=== PATIENT | female | born 2000 | race Caucasian/White ===

== ENCOUNTER → 2019-03-18 | Outpatient (CLI) | payer OTHER ==
[2019-03-18 14:16] LABS: BASO % 0.5 % (0.0-1.0); EOS # 0.1 10^3/uL (0.0-0.5); EOS % 1.4 % (0.0-3.0); HEMATOCRIT 40.3 % (36.0-47.0); HEMOGLOBIN 13.2 g/dl (12.0-15.5); LYMPH # 1.9 10^3/uL (1.5-5.0); LYMPH % 22.6 % (24.0-44.0); MEAN CORPUSCULAR HEMOGLOBIN 30.3 pg (27.0-33.0); MEAN CORPUSCULAR HGB CONC 32.8 g/dl (32.0-36.5); MEAN CORPUSCULAR VOLUME 92.4 fl (80.0-96.0); MONO # 0.5 10^3/uL (0.0-0.8); MONO % 6.4 % (0.0-5.0); NEUTROPHILS # 5.8 10^3/uL (1.5-8.5); NEUTROPHILS % 68.9 % (36.0-66.0); PLATELET COUNT, AUTOMATED 261 10^3/uL (150-450); RED BLOOD COUNT 4.36 10^6/uL (4.00-5.40); WHITE BLOOD COUNT 8.4 10^3/uL (4.0-10.0)
[2019-03-18 15:58] LABS: CHLAMYDIA DNA AMPLIFICATION NEGATIVE (NEGATIVE); GC DNA AMPLIFICATION NEGATIVE (NEGATIVE)
[2019-03-19 09:45] LABS: HIV 1&2 SCREEN CENTAUR NEGATIVE (NEGATIVE); RUBELLA IgG QUALITATIVE IMMUNE (IMMUNE)
== END ==
LOC: M SMT 10:49
PROVIDERS: ATTEND Advanced Practice Midwife
DX: Z34.81 Encounter for supervision of other normal pregnancy, first trimester (principal); Z3A.01 Less than 8 weeks gestation of pregnancy

== ENCOUNTER → 2019-04-02 | Outpatient (CLI) | payer OTHER ==
--- NOTE | 2019-04-02 15:25 | REP ---
OB ULTRASOUND: Real-time sonographic evaluation of the gravid uterus is performed and demonstrates a single living intrauterine gestation. Estimated gestational age 18 weeks 3 days, EDC 08/31/2019. Today's measurements indicate appropriate growth. BPD 39 mm = 18 weeks 0 days, 33rd percentile HC 160 mm = 18 weeks 6 days, 62nd percentile AC 131 mm = 18 weeks 4 days, 55th percentile Femur length 26 mm = 18 weeks 0 day, 35th percentile HC/AC ratio 1.22 within normal range. Estimated weight 235 grams, 44th percentile. Cervix is closed and measures 3.23 cm in length. heart rate 142 beats per minute. SEEN/GROSSLY UNREMARKABLE Lateral ventricles Yes Posterior fossa Yes Upper lip Yes Four-chamber heart Yes LVOT Yes RVOT Yes Stomach Yes Cord insertion Yes Three vessel cord Yes Kidneys Yes Bladder Yes Spine Yes position: Breech. Placenta: Anterior and grade 0 with no previa or abruption. Amniotic fluid: Within normal limits. Electronically Signed by Eben Pardo MD 04/03/2019 11:24 A
== END ==
LOC: M RAD 13:38
PROVIDERS: ATTEND Advanced Practice Midwife
DX: O09.212 Supervision of pregnancy with history of pre-term labor, second trimester (principal); Z3A.18 18 weeks gestation of pregnancy

== ENCOUNTER → 2019-08-07 | Outpatient (REF) | payer OTHER ==
[~2019-08-07] MED LIST: PRENTAB53 PO
== END ==
LOC: M SFHCWAGY 10:06
PROVIDERS: ATTEND Obstetrics & Gynecology
DX: Z36.85 Encounter for antenatal screening for Streptococcus B (principal); Z3A.36 36 weeks gestation of pregnancy

== ENCOUNTER 2019-08-16 12:51 | Outpatient (CLI) | payer OTHER ==
[~2019-08-16] VITALS: Ht 162.6 cm; Wt 81.8 kg
[2019-08-16 13:05] VITALS: BP 119/76
== END 2019-08-16 14:01 | disposition home or self-care (01) ==
LOC: M LDO 12:51
PROVIDERS: ATTEND Obstetrics & Gynecology
DX: O36.8130 Decreased fetal movements, third trimester, not applicable or unspecified (principal); Z3A.37 37 weeks gestation of pregnancy; O34.211 Maternal care for low transverse scar from previous cesarean delivery; Z87.51 Personal history of pre-term labor; Z88.1 Allergy status to other antibiotic agents; Z91.018 Allergy to other foods
CPT/HCPCS: 59025; 76815; G0378; G0463

== ENCOUNTER 2019-08-25 07:20 | Inpatient (IN) | payer OTHER ==
[2019-08-25] VITALS (8 sets, daily range): BP systolic 98–123; BP diastolic 57–70
[~2019-08-25] VITALS: Ht 162.6 cm; Wt 82.4 kg
[~2019-08-25 07:20] MED LIST changes: +MORPHINE PRES-FREE INJ 10 MG/10 ML VIAL (J2274) As Ordered ONE; +OXYTOCIN INJ 10 UNITS/ML VIAL (J2590) As Ordered ONE
[2019-08-25] MEDS ORDERED: ceFAZolin SOD 2 GM in IV 1 EA IV ONE (08:00)
[2019-08-25] MEDS ORDERED: BICITRA 30ML SOLN UDC PO ONE (08:00)
[2019-08-25] MEDS ORDERED: LR 1,000 ML IV SCH ×2 (08:15→10:45)
[2019-08-25] MEDS ORDERED: LR 1,000 ML IV ONE (08:15)
[2019-08-25 08:22] LABS: HEMATOCRIT 40.7 % (36.0-47.0); MEAN CORPUSCULAR HEMOGLOBIN 30.9 pg (27.0-33.0); MEAN CORPUSCULAR HGB CONC 34.4 g/dl (32.0-36.5); MEAN CORPUSCULAR VOLUME 89.8 fl (80.0-96.0); PLATELET COUNT, AUTOMATED 206 10^3/uL (150-450); RED BLOOD COUNT 4.53 10^6/uL (4.00-5.40); WHITE BLOOD COUNT 8.6 10^3/uL (4.0-10.0)
[2019-08-25] MEDS ORDERED: NALOXONE INJ 0.4 MG/1 ML VIAL (J2310) IV PRN ×2 (09:15)
[2019-08-25] MEDS ORDERED: diphenhydrAMINE 50MG/ML VIAL (J1200) IV PRN (09:15)
[2019-08-25] MEDS ORDERED: ONDANSETRON 4MG/2ML VIAL (J2405) IV PRN ×3 (09:15→10:45)
[2019-08-25] MEDS ORDERED: METOCLOPRAMIDE INJ 10MG/2ML VIAL (J2765) IV PRN ×2 (09:15→10:45)
[2019-08-25] MEDS ORDERED: NALBUPHINE HCL 10 MG/ML AMP (J2300) IV PRN (09:15)
[2019-08-25] MEDS ORDERED: ePHEDrine SULFATE 25 MG/5 ML(5MG/ML) SYRINGE As Ordered ONE (09:29)
[2019-08-25] MEDS ORDERED: ONDANSETRON 4MG/2ML VIAL (J2405) As Ordered ONE (09:29)
[2019-08-25] MEDS ORDERED: KETOROLAC 60 MG/2 ML VIAL (J1885) As Ordered ONE (09:29)
[2019-08-25] MEDS ORDERED: dexameTHASONE 4 MG/ML 1ML VIAL (J1100 PER 1MG) As Ordered ONE (09:29)
[2019-08-25] MEDS ORDERED: PHENYLephrine HCL 500 MCG/5 ML (100MCG/ML) SYRINGE (J2370) As Ordered ONE (09:29)
[2019-08-25] MEDS ORDERED: ONDANSETRON 4 MG TAB (S0181) PO PRN (10:15)
[2019-08-25] MEDS ORDERED: PERCOCET 5MG/325MG TAB PO PRN ×2 (10:15→10:45)
[2019-08-25] MEDS ORDERED: DOCUSATE SODIUM 100 MG CAP PO PRN (10:15)
--- NOTE | 2019-08-25 10:37 | RO ---
DATE OF PROCEDURE: 08/25/2019 PREPROCEDURE DIAGNOSES: 39 weeks, prior section times one, undesired fertility. POSTPROCEDURE DIAGNOSES: 39 weeks, prior section times one, undesired fertility. PROCEDURE: Repeat low transverse section, bilateral tubal sterilization. SURGEON: Amadou Carey MD SURVEYOR: Isidoro Pruitt DO ANESTHESIA: Spinal. ESTIMATED BLOOD LOSS: 500 mL. URINE OUTPUT: 100 mL. FINDINGS: 7 pound 11 ounce male . scores of 9 and 9. Vertex. Light meconium present. Normal uterus, fallopian tubes and ovaries. OPERATIVE SUMMARY: The patient was taken to the operating room where spinal anesthesia was induced. She was prepped and draped in a sterile fashion in the supine position. Agosto catheter was placed. Pfannenstiel skin incision was made with a scalpel and carried through to the fascia. The fascia was nicked and extended. The fascia was dissected off the rectus muscles. The peritoneal cavity was entered. Bladder flap was created. Mobitz retractor was placed. Curvilinear incision was made along the lower uterine segment. Bulging membranes were noted. This was extended manually. Membranes were ruptured and light meconium noted. Loose nuchal cord times two was reduced manually. The infant was delivered in the vertex position without difficulty. The cord was double clamped and cut. The baby was handed off to the awaiting nurse. The placenta was expressed. The uterus was closed with 0 Vicryl in a running lock fashion. A second imbricating layer of 0 Vicryl was placed. Attention was turned to the fallopian tubes. The fallopian tubes were grasped at the mid portion with Cira clamp. A window was created in the broad ligament. A segment of tube on either side of the clamp was secured with free tie of 3-0 chromic. A segment of tube was excised bilaterally. The peritoneum was closed with 2-0 Vicryl in a running fashion. The fascia was closed with 0 Vicryl in a running fashion. Deep layer was irrigated and the skin was closed with 4-0 Monocryl subcuticular sutures. Sponge, instrument and needle counts were correct.
[2019-08-25] MEDS ORDERED: MEPERIDINE INJ 25 MG/ML VIAL (J2175) IV PRN (10:45)
[2019-08-25] MEDS ORDERED: fentaNYL 100 MCG/2 ML INJECTION (J3010) IV PRN (10:45)
[2019-08-25] MEDS ORDERED: OXYTOCIN 30 UNITS IN 0.9% NaCl 500ML IV BAG (J2590) As Ordered ONE (10:56)
[2019-08-25] MEDS ORDERED: MEASLES,MUMPS,RUBELLA VACCINE INJ (MMR-II) (90707) SC SCH (11:00)
[2019-08-25] MEDS ORDERED: RHOGAM 300 MCG (1500 IU) INJ (J2790) IM SCH (11:00)
[2019-08-25] MEDS ORDERED: OXYTOCIN DRIP 30 UNITS in IV 1 EA IV SCH (11:00)
[2019-08-25] MEDS: LR 1,000 ML IV SCH ×2 (15:05→19:22)
[2019-08-25] MEDS: KETOROLAC 30 MG/ML VIAL (J1885) IV SCH ×2 (15:58→21:56)
[2019-08-26 02:02] VITALS: BP 97/59
[2019-08-26] MEDS: LR 1,000 ML IV SCH (03:00)
[2019-08-26] MEDS: KETOROLAC 30 MG/ML VIAL (J1885) IV SCH (04:48)
[2019-08-26 06:07] VITALS: BP 111/74
[2019-08-26 06:52] LABS: HEMATOCRIT 32.6 % (36.0-47.0); MEAN CORPUSCULAR HEMOGLOBIN 31.3 pg (27.0-33.0); MEAN CORPUSCULAR HGB CONC 33.7 g/dl (32.0-36.5); MEAN CORPUSCULAR VOLUME 92.6 fl (80.0-96.0); PLATELET COUNT, AUTOMATED 175 10^3/uL (150-450); RED BLOOD COUNT 3.52 10^6/uL (4.00-5.40); WHITE BLOOD COUNT 11.3 10^3/uL (4.0-10.0)
[2019-08-26] MEDS ORDERED: OXYC1TAB23 PO (07:32)
[2019-08-26] MEDS ORDERED: IBUP80TA PO (07:33)
[2019-08-26 09:55] VITALS: BP 96/51
[2019-08-26] MEDS: PRENATAL VITAMINS CHEWABLE TABLET PO SCH (10:46)
[2019-08-26] MEDS: PERCOCET 5MG/325MG TAB PO PRN ×2 (10:46→20:48)
[2019-08-26] MEDS: IBUPROFEN 800 MG TAB PO SCH ×2 (12:51→20:15)
[2019-08-26 14:00] VITALS: BP 127/78
[2019-08-26 18:00] VITALS: BP 111/61
[2019-08-26 21:51] VITALS: BP 99/54
[2019-08-27 02:00] VITALS: BP 134/86
[2019-08-27] MEDS: IBUPROFEN 800 MG TAB PO SCH ×2 (04:10→12:13)
[2019-08-27 06:00] VITALS: BP 109/65
--- NOTE | 2019-08-27 06:40 | DS.PDOC ---
Discharge Summary General Date of Admission Aug 25, 2019 at 07:20 Date of Discharge August 27, 2019 Discharge Summary PROCEDURES PERFORMED DURING STAY: Repeat with bilateral tubal ligation. ADMITTING DIAGNOSES: 1. Repeat section, undesired fertility. DISCHARGE DIAGNOSES: 1. Repeat section, undesired fertility. COMPLICATIONS/CHIEF COMPLAINT: Previous Cesaren Section Satisfied Parity. HISTORY OF PRESENT ILLNESS: 19yo G2 now P1103 admitted for repeat section and bilateral tubal ligation. HOSPITAL COURSE: performed 08/25/[address] Carey. Ms Montero reports adequate pain management. Voiding and passing flatus. DISCHARGE MEDICATIONS: Please see below. ALLERGIES: Please see below. PHYSICAL EXAMINATION ON DISCHARGE: VITAL SIGNS: Please see below. GENERAL: Alert, oriented NECK: Supple CARDIOVASCULAR EXAMINATION: Normotensive, HRR RESPIRATORY EXAMINATION: Clear and unlabored ABDOMINAL EXAMINATION: Fundus firm. Dressing intact EXTREMITIES: Equal strength and motion SKIN: Intact NEUROLOGICAL EXAMINATION: Grossly intact PSYCHIATRIC EXAMINATION: Appropriate LABORATORY DATA: Please see below. PROGNOSIS: Good ACTIVITY: As tolerated. DIET: As tolerated DISCHARGE PLAN: Routine care DISPOSITION: Home. DISCHARGE INSTRUCTIONS: 1. Pelvic rest x 6 wks. Maintain pressure dressing till day 5. Call with fever, nausea, vomiting, chills, foul lochia or wound exudate. RTO 2wks and 6 wks DISCHARGE CONDITION: Stable. TIME SPENT ON DISCHARGE: Greater than 10 minutes. Vital Signs/I&Os Vital Signs Date Time Temp Pulse Resp B/P (MAP) Pulse Ox O2 Delivery O2 Flow Rate FiO2 08/27/19 06:00 98.2 62 18 109/65 (80) 99 Room Air Laboratory Data Labs 24H Laboratory Tests 2 08/26/19 06:38: Nucleated Red Blood Cells % (auto) 0.0 CBC/BMP Laboratory Tests 08/26/19 06:38 Discharge Medications Scheduled Ibuprofen (Ibuprofen) 800 Mg Tablet, 800 MG PO Q8H Vit,Calc76/Iron/Folic (Prenatabs Rx Tablet) 1 Each Tablet, 1 TAB PO DAILY, (Reported) Scheduled PRN Oxycodone HCl/Acetaminophen (Oxycodone-Acetaminophen 5-325) 1 Each Tablet, 1 TAB PO TIDP PRN for pain Allergies Coded Allergies: amoxicillin (Verified Allergy, Intermediate, hives, 08/11/19) rhubarb (Verified Allergy, Intermediate, hives, 08/11/19) Terese Barnes CNM Aug 27, 2019 06:40
[2019-08-27] MEDS ORDERED: [UNRECOGNIZED DRUG - OTHER] IM ONE (09:00)
[2019-08-27] MEDS ORDERED: INFLUENZA QUADRIVALENT PF VACCINE 0.5ML SYRINGE (90686) IM ONE (09:00)
[2019-08-27] MEDS: PERCOCET 5MG/325MG TAB PO PRN (09:31)
[2019-08-27] MEDS: PRENATAL VITAMINS CHEWABLE TABLET PO SCH (09:31)
== END 2019-08-27 14:45 | disposition home or self-care (01) | DRG 785 ==
LOC: M LDI 07:20 → M OBS 11:31
PROVIDERS: ADMIT Specialist; ATTEND Specialist
PROC: 0UB70ZZ Excision of Bilateral Fallopian Tubes, Open Approach (ICD-10-PCS; 2019-08-25)
PROC: 10D00Z1 Extraction of Products of Conception, Low, Open Approach (ICD-10-PCS; principal; 2019-08-25 07:30)
DX: O34.211 Maternal care for low transverse scar from previous cesarean delivery (principal); Z37.0 Single live birth; Z3A.39 39 weeks gestation of pregnancy; Z30.2 Encounter for sterilization